=== PATIENT | male | born 1985 | race Caucasian/White ===

== ENCOUNTER 2017-01-17 05:06 | Emergency (ER) | payer OTHER ==
[~2017-01-17] VITALS: Ht 188 cm; Wt 131.8 kg
[~2017-01-17 05:06] MED LIST: POLY17PO6 PO
[2017-01-17 05:09] VITALS: BP 146/92; PULSE 94; RESP 18; O2SAT 97
--- NOTE | 2017-01-17 05:15 | ED.REPORT ---
HPI-Abd Pain M Under 40 Date of Service Jan 17, 2017 ED Provider: Abrahan Bishop MD Patient is a 31 year old male with a history of diverticulitis with microperforation who presents to the ED with LLQ abdominal pain that began 2 days ago. Patient states that his pain is constant and that it has not increased much in severity. The patient states that is current pain is similar in character to when he previously had diverticulitis, however it is not yet as severe. He denies nausea, vomiting, diarrhea, chills, or fever. Nursing Notes Stated Complaint: ABDOMINAL PAIN Chief Complaint: Male Abdominal Pain Nursing Notes Reviewed: Yes Allergies: Coded Allergies: No Known Allergies (Unverified , 01/17/17) Scheduled PRN Polyethylene Glycol 3350 (Miralax) 17 Gm Powd.pack 17 GM PO DAILY PRN PRN For Constipation General Time Seen by MD: 05:14 Chief Complaint Abdominal pain Hx Obtained From: Patient Arrived By: Walk-in Sudden in Onset?: No Onset Occurred: 2 days ago Symptom Duration: Since onset Location: : LLQ Quality: Painful Severity: Current: Moderate Severity: Maximum: Moderate Pertinent Negative: Pt denies other symptoms Recent Healthcare: No recent doctor visit, No recent hospitalization Similar Sx Previous: Yes Past Medical History Past Medical History history of diverticulitis with microperforation Past Surgical History colonoscopy Smoking History Never Smoker 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 Physical Exam Initial Vital Signs Vital Signs (First) Date Time Temp Pulse Resp B/P Pulse Ox O2 Delivery O2 Flow Rate FiO2 01/17/17 05:09 36.2 94 18 146/92 97 Room Air Initial VS: Reviewed, Vital signs abnormal Head / Eyes: Atraumatic, Normocephalic, PERRL ENT: Conjunctiva normal, No scleral icterus Neck: Supple, Full range of motion Extremities: Vascular intact, Neuro intact Skin: Warm, Dry, No cyanosis Neurologic: Alert, Oriented, Nonfocal Psychiatric: Mood/affect normal, Behavior normal, Normal thought content General/Constitutional: Awake, Alert, No acute distress Appearance / Presentation: Positive: Obese Respiratory / Chest: Breath sounds NL, Breath sounds = bilat, No respiratory distress, No wheezing Cardiovascular: Heart rate NL, Regular rhythm, Heart sounds NL, No murmurs Abdomen: Soft, No guarding, No rebound Tenderness/Guarding/Rebound: Positive: Tender LLQ... (Moderate), Tender suprapubic Back: No midline vertebral tend, No CVA tenderness Interpretation & Diagnostics Lab Results Interpretation Test 01/17/17 05:43 Hold Guerrier Top Tube Received (Received) Re-Eval/Medical Decision Med Decision/Clinical Course 31-year-old male with a history of diverticulitis and microperforation presents with recurrent abdominal pain which is similar to the past. He is tender in the left lower quadrant. Initial IV and labs were ordered Source of Hx: Old records Patient Discharge & Departure Shift Change Sign-Out Patient Care Transferred: Yes Discussed Complaint(s): Yes Laboratory Evaluation: Done, results pending Laboratory evaluation and possible CT scan Primary Impression: LLQ abdominal pain Referrals: Chiki Rodriguez MD (PCP) Care Transferred to: Dr. Walker Care Transferred at: 06:00 Anatoliy Attestation Portions of this note were transcribed by Lula Maciel. I, Dr. Bishop personally performed the history, physical exam and medical decision-making; I reviewed and confirmed the accuracy of the information in the transcribed note. Signed by: Anatoliy Tirado, 01/17/2017 0549 copies to: Chiki Rodriguez MD, Howard L MD Jan 17, 2017 05:15 Lula Maciel Jan 17, 2017 05:22
[2017-01-17] MEDS ORDERED: 0.9% Sodium Chloride 1,000 ML IV ONE (05:18)
[2017-01-17 06:11] LABS: BASOPHILS % (AUTO) 0.7 % (0-3); EOSINOPHILS % (AUTO) 3.3 % (0-5); MONOCYTES % (AUTO) 10.9 % (4-12); Mean Corpuscular Hemoglobin 29.2 pg (27.0-35.0); Mean Corpuscular Volume 84.4 fL (81-100); Platelet Count 236 bil/L (150-400)
[2017-01-17 06:15] LABS: Magnesium 2.1 mg/dL (1.6-2.6)
[2017-01-17] MEDS ORDERED: HYDROmorphone 1 mg/mL Inj IVPUSH PRN (07:35)
[2017-01-17] MEDS ORDERED: Ondansetron 2 mg/mL 2 mL Inj IVPUSH PRN (07:35)
[2017-01-17 07:46] VITALS: BP 118/57; PULSE 84; RESP 16; O2SAT 99
[2017-01-17] MEDS ORDERED: CIPR-231 PO (07:56)
[2017-01-17] MEDS ORDERED: METR500T19 PO (07:56)
[2017-01-17 08:25] VITALS: BP 128/73; PULSE 83; RESP 15; O2SAT 98
== END 2017-01-17 08:27 | disposition home or self-care (01) ==
LOC: SED 05:06
DX: K57.32 Diverticulitis of large intestine without perforation or abscess without bleeding (principal); R10.32 Left lower quadrant pain
CPT/HCPCS: 36415; 80053; 83690; 83735; 85025; 96374; 96375; 99285; J1170; J2405; J7030